=== PATIENT | male | born 1980 ===

== ENCOUNTER 2018-09-08 12:49 | Emergency (ER) | payer OTHER, BC ==
[2018-09-08 13:31] VITALS: O2SAT 99
[2018-09-08] MEDS ORDERED: Tdap Vaccine 0.5 ml Vial (10-64 yrs) IM ONE ×2 (14:48→14:55)
[2018-09-08] MEDS ORDERED: Lidocaine 1% Inj (20ml) INFIL ONE (14:49)
[2018-09-08] MEDS ORDERED: Lidocaine Hydrochloride 10 ML INJ ONE (14:54)
--- NOTE | 2018-09-08 15:14 | C.PDOC ---
History Of Present Illness 37 y/o male presents to the ED for evaluation of a laceration to the left 3rd digit, sustained just prior to arrival. Patient states he accidentally cut himself on a saw at work. He denies any change in sensation. Tetanus is not up to date. Time Seen by Provider: 09/08/18 14:15 Chief Complaint (Nursing): Abnormal Skin Integrity History Per: Patient History/Exam Limitations: no limitations Onset/Duration Of Symptoms: Mins Current Symptoms Are (Timing): Still Present Location Of Injury: Left: Hand Past Medical History Reviewed: Historical Data, Nursing Documentation, Vital Signs Vital Signs: Last Vital Signs Temp 97.5 F L 09/08/18 13:30 Pulse 70 09/08/18 13:30 Resp 20 09/08/18 13:30 BP 138/89 09/08/18 13:30 Pulse Ox 99 09/08/18 13:30 - Medical History PMH: No Chronic Diseases Surgical History: No Surg Hx Family History: States: No Known Family Hx - Social History Hx Alcohol Use: Yes Hx Substance Use: No - Immunization History Hx Tetanus Toxoid Vaccination: No Hx Influenza Vaccination: No Hx Pneumococcal Vaccination: No Review Of Systems Musculoskeletal: Positive for: Hand Pain Skin: Positive for: Lesions (laceration to left 3rd digit) Neurological: Negative for: Weakness, Numbness, Incoordination Physical Exam - Physical Exam Appears: Non-toxic, No Acute Distress Skin: No Rash Head: Normacephalic Eye(s): bilateral: PERRL, EOMI Chest: Symmetrical Respiratory: No Accessory Muscle Use, Other (no respiratory distress) Extremity: Normal ROM, Capillary Refill (less than 2 sec), No Deformity, No Swelling, Other (1 cm, irregular laceration at the medial aspect of the distal left 3rd digit, extending through the nail bed) Pulses: Left Radial: Normal, Right Radial: Normal Neurological/Psych: Oriented x3, Normal Motor, Normal Sensation, Other (No focal deficits) ED Course And Treatment O2 Sat by Pulse Oximetry: 99 (RA) Pulse Ox Interpretation: Normal Laceration - Laceration Repair L 3rd digit Wound Length (In cm): 1 Description Of Wound: Irregular (and involving nail bed), Stellate, Contused Tissue Wound Cleansed With: Sterile Saline Anesthesia: Lidocaine 1% Wound Examination: Irrigated With Saline Wound Closure: Suture (2 placed to nail, 2 to skin) Suture Technique And Material Used: Interrupted, Nylon (4:0) Wound Complexity: Simple Medical Decision Making Medical Decision Making: Initial Plan: X-ray taken of left hand to r/o fracture. Tetanus booster given in the ED. Toradol 30 mg IM given for pain. Lido 1% ordered for lac repair. Patient tolerated procedure well. Counseled regarding wound care and follow up instructions. counseled nail will fall off. bacitracin and bandage applied. finger splint applied for protection. f/u 1-2 days with hand surgeon. Disposition Counseled Patient/Family Regarding: Studies Performed, Diagnosis, Need For Followup, Rx Given - Disposition Referrals: Jaimee Kerr MD [Staff Provider] - Disposition: HOME/ ROUTINE Disposition Time: 17:15 Condition: GOOD Additional Instructions: Mantenga el dedo limpio y seco; Llame al cirujano de la mano y amaya la negrita ms pronto para deluna seguimiento; avise a la oficina que se le camron en la perez de emergencias Thea antibiticos e ibuprofeno para el dolor. [place] Tyoenol # 3 para el dolor jovana. Mantenga la mano elevada cuando sea posible. Cambie el apsito diariamente y aplique neosporin shyam vez al da. Reutrn a ER para detectar cualquier signo de infeccin, marvin rednss. hinchazn. secrecin purulenta. Keep finger clean and dry; Call Hand surgeon and make soonest appointment for follow up; let office know you were seen in ER. Take antibiotic and ibuprofen for pain. Take Tyoenol # 3 for severe pain. Keep hand elevated when possible. Change dressing daily and apply neosporin once a day. Reutrn to ER for any signs of infection., such as redness. swelling. purulent discharge. 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 - Scribe Statement The provider has reviewed the documentation as recorded by the Scribe Liane Mackey All medical record entries made by the Scribe were at my direction and personally dictated by me. I have reviewed the chart and agree that the record accurately reflects my personal performance of the history, physical exam, medical decision making, and the department course for this patient. I have also personally directed, reviewed, and agree with the discharge instructions and disposition.
--- NOTE | 2018-09-08 16:25 | RAD ---
Date of service: 09/08/2018 PROCEDURE: Left middle finger radiographs. HISTORY: lac to tip, eval for fx COMPARISON: None. TECHNIQUE: AP radiograph of the left hand, as well as spot oblique and lateral images of left middle finger were obtained. FINDINGS: LEFT MIDDLE FINGER: Left middle finger normal, without fracture of focal lesion. Remainder of the left hand (as seen on the AP view) is grossly unremarkable. JOINTS: Normal. SOFT TISSUES: Soft tissue injury. This includes the on-call bed. No visualized radiopaque foreign body. OTHER FINDINGS: Soft tissue calcifications an unrelated incidental finding. Resorption of the distal phalanx left 2nd digit. IMPRESSION: Soft tissue swelling without acute articular or osseous abnormality.
[2018-09-08] MEDS ORDERED: Bacitracin 500 Units/gm Oint Foilpak UD ONE (17:12)
[2018-09-08] MEDS ORDERED: Bacitracin 500 Units/gm Oint Foilpak UD TOP ONE (17:19)
[2018-09-08 17:34] VITALS: BP 131/84; PULSE 71; RESP 18; TEMP 98.1
== END 2018-09-08 17:33 | disposition home or self-care (01) ==
LOC: C.ER 12:49
DX: S61.313A Laceration without foreign body of left middle finger with damage to nail, initial encounter (principal); W45.8XXA Other foreign body or object entering through skin, initial encounter; Y92.89 Other specified places as the place of occurrence of the external cause; Y99.0 Civilian activity done for income or pay
CPT/HCPCS: 12001; 73140; 90471; 90715; 96372; 99283; J1885

== ENCOUNTER 2018-09-10 15:33 | Emergency (ER) | payer OTHER, BC ==
[2018-09-10 15:39] VITALS: BMI 26.6
[2018-09-10 15:40] VITALS: BP 147/92; PULSE 62; RESP 18; TEMP 98.7; O2SAT 99
[2018-09-10] MEDS ORDERED: Bacitracin 500 Units/gm Oint Foilpak UD TOP ONE (16:20)
--- NOTE | 2018-09-10 16:21 | C.PDOC ---
History Of Present Illness 37 year old male presents to the ED for a wound check. Patient was evaluated in this ED two days ago after he sustained a finger avulsion and received sutures. Patient has no complains and denies fever, chills, drainge or pain to the area. Time Seen by Provider: 09/10/18 15:48 Chief Complaint (Nursing): Wound Check History Per: Patient History/Exam Limitations: no limitations Onset/Duration Of Symptoms: Days Ago (2) Current Symptoms Are (Timing): Still Present Location Of Injury: Left: Hand (3rd finger ) Quality Of Symptoms: denies: Painful, Draining Additional History Per: Patient Past Medical History Reviewed: Historical Data, Nursing Documentation, Vital Signs Vital Signs: Last Vital Signs Temp 98.7 F 09/10/18 15:39 Pulse 62 09/10/18 15:39 Resp 18 09/10/18 15:39 BP 147/92 H 09/10/18 15:39 Pulse Ox 99 09/10/18 15:39 - Medical History PMH: No Chronic Diseases Surgical History: No Surg Hx Family History: States: Unknown Family Hx - Social History Hx Alcohol Use: Yes Hx Substance Use: No - Immunization History Hx Tetanus Toxoid Vaccination: No Hx Influenza Vaccination: No Hx Pneumococcal Vaccination: No Review Of Systems Constitutional: Negative for: Fever, Chills Skin: Positive for: Other (wound check ) Physical Exam - Physical Exam Appears: Non-toxic, No Acute Distress Skin: Normal Color, Warm, Dry, Other (sutured wound to left 3rd finger. no erythema, tenderness or cellulitis ) Extremity: Normal ROM, Capillary Refill (less than 2 seconds ) Neurological/Psych: Normal Speech, Normal Cognition ED Course And Treatment O2 Sat by Pulse Oximetry: 99 (on RA) Pulse Ox Interpretation: Normal Medical Decision Making Medical Decision Making: Wound was cleansed with sterile saline and sterile dressing applied. Disposition - Disposition Referrals: Jaimee Kerr MD [Staff Provider] - Disposition: HOME/ ROUTINE Disposition Time: 16:17 Condition: STABLE Additional Instructions: Continue taking the antibiotics as prescribed. Sutures to be removed within 7-10 days. Instructions: Wound Care (DC) Forms: [employer] (Pakistani), Work Excuse Print Language: LAO - Clinical Impression Clinical Impression: Visit for wound check - PA / ALINING INSPECTOR / Resident Statement MD/DO has reviewed & agrees with the documentation as recorded. - Scribe Statement The provider has reviewed the documentation as recorded by the Scribe (Helen Anderson) All medical record entries made by the Scribe were at my direction and personally dictated by me. I have reviewed the chart and agree that the record accurately reflects my personal performance of the history, physical exam, medical decision making, and the department course for this patient. I have also personally directed, reviewed, and agree with the discharge instructions and disposition.
[2018-09-10] MEDS ORDERED: Bacitracin 500 Units/gm Oint Foilpak UD ONE (16:39)
== END 2018-09-10 16:52 | disposition home or self-care (01) ==
LOC: C.ER 15:33
DX: Z51.89 Encounter for other specified aftercare (principal)

== ENCOUNTER 2019-03-05 13:13 | Observation (INO) | payer BC, OTHER ==
[2019-03-05 13:13] VITALS: BMI 26.6
--- NOTE | 2019-03-05 14:02 | C.PDOC ---
History Of Present Illness 38 y.o. male presents for evaluation of LT hand redness and swelling associated with subjective fever x3 days. Pt reports pain to the area. He states prior similar skin infections yearly to other parts of the body for 5 years. Pt notes previous treatment with unknown antibiotic. Denies DM, drainage, and any other associated symptoms. L HAND REDNESS, SWELL X 3 DAYS. SUBJ FEVER. NO TRAUMA. +SWELLING, PAIN TO AREA. PS GETS SIM SKIN INFECTIONS YEARLY (OTHER PARTS OF BODY) X 5 YRS. PS PREV TREATED W UNK ABX. NO DM EXAM NONTOXIC SKIN +CELLULITIS DORSAL L HAND W EXTENSION TO DISTAL FOREARM, PROXIMAL FINGERS. NO LESIONS, WEEPING EXT L HAND +DIFFUSE TENSE NONPITTING EDEMA Time Seen by Provider: 03/05/19 13:50 Chief Complaint (Nursing): Abnormal Skin Integrity History Per: Patient History/Exam Limitations: no limitations Onset/Duration Of Symptoms: Days (x3) Current Symptoms Are (Timing): Still Present Location Of Injury: Left: Hand Quality Of Symptoms: Swollen, Other (redness. ) Recent travel outside of the [place]: No Past Medical History Reviewed: Historical Data, Nursing Documentation, Vital Signs Vital Signs: Last Vital Signs Temp 100 F H 03/05/19 13:23 Pulse 90 03/05/19 13:23 Resp 16 03/05/19 13:23 BP 146/102 H 03/05/19 13:23 Pulse Ox 96 03/05/19 13:23 Primary Care Provider: FAMILY PROVIDER,NO Family History: States: Unknown Family Hx - Social History Hx Alcohol Use: Yes Hx Substance Use: No - Immunization History Hx Tetanus Toxoid Vaccination: No Hx Influenza Vaccination: No Hx Pneumococcal Vaccination: No Review Of Systems Except As Marked, All Systems Reviewed And Found Negative. Constitutional: Positive for: Fever (subjective. ) Skin: Positive for: Other (LT Hand: (+) swelling. (+) redness. (+) pain. (-) drainage. ) Physical Exam - Physical Exam Appears: Non-toxic, No Acute Distress Skin: Warm, Dry, Other (+CELLULITIS DORSAL L HAND W EXTENSION TO DISTAL FOREARM, PROXIMAL FINGERS. NO LESIONS, WEEPING.) Head: Atraumatic, Normacephalic Eye(s): bilateral: Normal Inspection Oral Mucosa: Moist Neck: Normal ROM, Supple Cardiovascular: Rhythm Regular, No Murmur Respiratory: Normal Breath Sounds, No Rales, No Rhonchi, No Wheezing, No Other (NARD) Gastrointestinal/Abdominal: Normal Exam, Soft, No Tenderness Extremity: Tenderness (TO THE LT HAND, DIFFUSE.), Other (NONPITTING EDEMA. ) Neurological/Psych: Oriented x3, Normal Speech, Normal Cognition ED Course And Treatment - Laboratory Results Result Diagrams: 03/06/19 08:21 03/06/19 08:21 O2 Sat by Pulse Oximetry: 96 (RA) Pulse Ox Interpretation: Normal - Other Rad L HAND X-Ray: Interpreted by Me (+FB OVER L 5TH METACARPAL HEAD; NO FX, FA) Progress - Re-Evaluation Re-evaluation Note: 03/05/19 14:02 D/W DR RAÚL PAK DEPUTY [place] WILL ADMIT - Data Reviewed Data Reviewed: Lab, Diagnostic imaging Medical Decision Making Medical Decision Making: Initial plan: -Blood sent. -Toradol -Vancomycin -Ancef -Blood culture -LT Hand Xray Disposition Counseled Patient/Family Regarding: Studies Performed, Diagnosis - Disposition Disposition: HOSPITALIZED Disposition Time: 14:00 Condition: STABLE - Clinical Impression Clinical Impression: Cellulitis - Scribe Statement The provider has reviewed the documentation as recorded by the Scribe (Nisha Fuentes) Provider Attestation: All medical record entries made by the Scribe were at my direction and personally dictated by me. I have reviewed the chart and agree that the record accurately reflects my personal performance of the history, physical exam, medical decision making, and the department course for this patient. I have also personally directed, reviewed, and agree with the discharge instructions and disposition.
[2019-03-05] MEDS ORDERED: ceFAZolin IV 1 gm in Dextrose 1 GM/50 ML BAG IVPB STA (14:12)
[2019-03-05] MEDS ORDERED: ceFAZolin IV 1 gm in Dextrose 1 GM/50 ML BAG IVPB SCH (14:15)
[2019-03-05] MEDS ORDERED: Vancomycin 1 GM 1 GM/250 ML BAG IVPB ONE (14:30)
[2019-03-05] MEDS ORDERED: ceFAZolin 1 gm in NS 1 GM/100 ML BAG IVPB ONE (14:31)
[2019-03-05 14:54] LABS: BASO # 0.1 K/uL (0.0-0.2); BASO % 0.5 % (0.0-2.0); EOS # 0.1 K/uL (0.0-0.7); EOS % 0.3 % (0.0-4.0); HEMOGLOBIN 14.5 g/dL (12.0-18.0); LYMPH % 11.5 % (20.0-40.0); MEAN CELL VOLUME 89.4 fL (80.0-94.0); MEAN CORPUSCULAR HEMOGLOBIN 31.1 pg (27.0-31.0); MEAN CORPUSCULAR HGB CONC 34.8 g/dL (33.0-37.0); MEAN PLATELET VOLUME 9.3 fL (7.2-11.7); MONO # 1.2 K/uL (0.0-0.8); MONO % 6.5 % (0.0-10.0); NEUT # 14.4 K/uL (1.8-7.0); NEUT % 81.2 % (50.0-75.0); RBC 4.67 Mil/uL (4.40-5.90); RED CELL DISTRIBUTION WIDTH 13.6 % (11.5-14.5); WHITE BLOOD COUNT 17.7 K/uL (4.8-10.8)
[2019-03-05 15:05] LABS: BLOOD UREA NITROGEN 10 mg/dL (9-20); CALCIUM 10.1 mg/dl (8.6-10.4); GFR NON-AFRICAN AMERICAN > 60
--- NOTE | 2019-03-05 16:23 | CP.PCM.HP ---
<Tutu Chacko - Last Filed: 03/05/19 18:29> History of Present Illness - History of Present Illness History of Present Illness: 38 year old male with a past medical history of cellulitis presents to the emergency department with left hand swelling for the past day. Patient states it started to swell slightly three days ago, however yesterday he tried to pop what he thought was a pimple. Patient states when he woke up this morning the hand had grew even larger and began to hurt. Patient describes the pain as throbbing in nature. He denies any recent accidents or trauma to the area. 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 He denies taking anything for the pain. Of note, he had two episodes of cellulits in the past. Approximately five years ago he had a similar infection on his anterior chest wall and right leg. He also reports his brother and father have had similar skin infections. PMD: Denies Medical history: cellulitis Allergies: Denies Surgical history: Denies Medications: Denies Family history: non contributory besides what is stated in HPI Present on Admission - Present on Admission Any Indicators Present on Admission: No Review of Systems - Constitutional Constitutional: Fever. absent: Excessive Sweating, Night Sweats, Snoring - EENT Eyes: absent: Change in Vision, Decreased Night Vision, Pain, Tunnel Vision, Other Visual Disturbances Ears: absent: Tinnitus Nose/Mouth/Throat: absent: Nasal Discharge, Bleeding Gums, Change in Voice, Other - Cardiovascular Cardiovascular: absent: Chest Pain, Edema, Orthopnea, Palpitations, Paroxysmal N octurnal Dyspnea, Syncope - Respiratory Respiratory: absent: Cough, Dyspnea, Hemoptysis, Wheezing, Excessive Mucous Production - Gastrointestinal Gastrointestinal: absent: Bloating, Change in Bowel Habits, Diarrhea, Dyspepsia, Dysphagia, Melena - Genitourinary Genitourinary: absent: Change in Urinary Stream, Dysuria, Flank Pain, Urinary Hesitance - Musculoskeletal Musculoskeletal: absent: Back Pain, Deformity, Myalgias, Neck Pain - Integumentary Integumentary: absent: Change in Nails, Lesions, New Lesions, Sores, Striae - Neurological Neurological: absent: Abnormal Speech, Dizziness, Numbness, Vertigo, Weakness - Psychiatric Psychiatric: absent: Confusion, Irritability, Panic Attacks, Paranoia, Visual Hallucinations - Hematologic/Lymphatic Hematologic: absent: Easy Bleeding, Easy Bruising, Lymphadenopathy Past Patient History - Past Social History Smoking Status: Never Smoked - PSYCHIATRIC Hx Substance Use: No - SURGICAL HISTORY Hx Surgeries: No - ANESTHESIA Hx Anesthesia: No Hx Anesthesia Reactions: No Meds Allergies/Adverse Reactions: Allergies Allergy/AdvReac Type Severity Reaction Status Date / Time No Known Allergies Allergy Verified 03/05/19 13:24 Physical Exam - Head Exam Head Exam: ATRAUMATIC, NORMAL INSPECTION - Eye Exam Eye Exam: EOMI, Normal appearance. absent: Nystagmus, Periorbital swelling Pupil Exam: NORMAL ACCOMODATION, PERRL - ENT Exam ENT Exam: Mucous Membranes Moist, Normal Exam - Neck Exam Neck exam: Positive for: Normal Inspection. Negative for: Tenderness - Respiratory Exam Respiratory Exam: Clear to Auscultation Bilateral, NORMAL BREATHING PATTERN - Cardiovascular Exam Cardiovascular Exam: REGULAR RHYTHM, +S1, +S2. absent: Tachycardia, Clicks, Diastolic murmur, JVD, RRR - GI/Abdominal Exam GI & Abdominal Exam: Normal Bowel Sounds, Soft. absent: Hyperactive Bowel Sounds, Rebound, Rigid - Neurological Exam Neurological exam: Alert, CN II-XII Intact, Normal Gait, Oriented x3 - Psychiatric Exam Psychiatric exam: Normal Affect, Normal Mood - Skin Skin Exam: Dry Additional comments: Right hand: Swollen and erythematous. Wound on the lateral side of the right hand. Pulses appreciated. Results - Vital Signs Recent Vital Signs: Last Vital Signs Temp 99.5 F 03/05/19 15:49 Pulse 86 03/05/19 15:49 Resp 16 03/05/19 15:49 BP 140/95 H 03/05/19 15:49 Pulse Ox 98 03/05/19 15:49 - Labs Result Diagrams: 03/05/19 14:49 03/05/19 14:49 Labs: Laboratory Results - last 24 hr 03/05/19 03/05/19 14:49 14:49 WBC 17.7 H RBC 4.67 Hgb 14.5 Hct 41.8 MCV 89.4 MCH 31.1 H MCHC 34.8 RDW 13.6 Plt Count 290 MPV 9.3 Neut % (Auto) 81.2 H Lymph % (Auto) 11.5 L [place] % (Auto) 6.5 Eos % (Auto) 0.3 Baso % (Auto) 0.5 Neut # (Auto) 14.4 H Lymph # (Auto) 2.0 [place] # (Auto) 1.2 H Eos # (Auto) 0.1 Baso # (Auto) 0.1 Sodium 137 Potassium 4.0 Chloride 99 Carbon Dioxide 30 Anion Gap 12 BUN 10 Creatinine 0.8 Est GFR ( Amer) > 60 Est GFR (Non-Af Amer) > 60 Random Glucose 89 Calcium 10.1 Assessment & Plan - Assessment and Plan (Free Text) Assessment: 38 year old male with a past medical history of cellulitis presents to the emergency department with left hand swelling for the past day. Plan: 1. Right hand cellulitis Right hand xray: taken. Blood cx ordered .F/u with results. Hand Surgery Dr. Espinoza consulted--> Help appreciated Medications: Vancomycin 1gm q12 CHRISTINA Acetaminophen 650mg PO Q6 PRN Toradol 30mg IVP Q6 PRN 2.Elevated blood pressure reading 142/102 on Admission Likely 2/2 to pain Will monitor. PPX Heparin LR @ 100mls/hr Dispo: Awaiting blood cultures and rec's from Hand surgeon. Plan discussed with Attending Dr. Giron. Tutu Chacko, PGY-2 <Swapnil Giron - Last Filed: 03/06/19 13:01> Results - Vital Signs Recent Vital Signs: Last Vital Signs Temp 99.0 F 03/05/19 16:34 Pulse 64 03/05/19 16:34 Resp 20 03/05/19 16:34 BP 132/79 03/05/19 16:34 Pulse Ox 96 03/05/19 16:34 - Labs Result Diagrams: 03/06/19 08:21 03/06/19 08:21 Labs: Laboratory Results - last 24 hr 03/05/19 03/05/19 14:49 14:49 WBC 17.7 H RBC 4.67 Hgb 14.5 Hct 41.8 MCV 89.4 MCH 31.1 H MCHC 34.8 RDW 13.6 Plt Count 290 MPV 9.3 Neut % (Auto) 81.2 H Lymph % (Auto) 11.5 L [place] % (Auto) 6.5 Eos % (Auto) 0.3 Baso % (Auto) 0.5 Neut # (Auto) 14.4 H Lymph # (Auto) 2.0 [place] # (Auto) 1.2 H Eos # (Auto) 0.1 Baso # (Auto) 0.1 Sodium 137 Potassium 4.0 Chloride 99 Carbon Dioxide 30 Anion Gap 12 BUN 10 Creatinine 0.8 Est GFR ( Amer) > 60 Est GFR (Non-Af Amer) > 60 Random Glucose 89 Calcium 10.1 Attending/Attestation - Attestation I have personally seen and examined this patient.: Yes I have fully participated in the care of the patient.: Yes I have reviewed all pertinent clinical information: Yes Notes (Text): seen and examined with the resident denies insect bite,denies drug use h/o similar skin infection left hand and forarm swelling,redness and tenderness Cellulitis of hand and forearm continue ceftriaxone and vanco hydrate pain meds follow labs
[2019-03-05] MEDS ORDERED: Vancomycin 1 gm/NS 200 ml 1 GM/200 ML BAG IVPB SCH (16:30)
[2019-03-05 16:36] VITALS: RESP 20
[2019-03-05] MEDS: Lactated Ringer's 1,000 ML IV SCH (20:55)
--- NOTE | 2019-03-05 21:23 | RAD ---
PROCEDURE: Left Hand Radiographs. HISTORY: CELLULITIS COMPARISON: 09/08/2018 TECHNIQUE: 3 views obtained. FINDINGS: BONES: Normal. No fracture. JOINTS: Normal. No osteoarthritic changes. SOFT TISSUES: Soft tissue swelling noted. OTHER FINDINGS: None. IMPRESSION: No evidence of acute fracture or or dislocation. No radiographic evidence of osteomyelitis.
[2019-03-05 22:21] LABS: BARBITURATES, UR NEGATIVE (NEGATIVE); BENZODIAZEPINES, UR NEGATIVE (NEGATIVE); OPIATES, UR NEGATIVE (NEGATIVE); PHENCYCLIDINE, UR NEGATIVE (NEGATIVE)
[2019-03-05 23:50] LABS: SQUAMOUS EPITHIAL < 1 /hpf (0-5); URINE BILIRUBIN NEGATIVE (NEGATIVE); URINE BLOOD 1+ (NEGATIVE); URINE CLARITY Clear (Clear); URINE COLOR Yellow (YELLOW); URINE GLUCOSE (UA) NORMAL (Normal); URINE LEUKOCYTE ESTERASE NEG Leu/uL (Negative); URINE PROTEIN NEGATIVE (NEGATIVE)
[2019-03-06] MEDS: Vancomycin 1 gm/NS 200 ml 1 GM/200 ML BAG IVPB SCH ×2 (04:02→17:00)
[2019-03-06] MEDS: Lactated Ringer's 1,000 ML IV SCH ×3 (05:20→17:09)
[2019-03-06 08:37] LABS: BASO # 0.1 K/uL (0.0-0.2); BASO % 0.5 % (0.0-2.0); EOS # 0.1 K/uL (0.0-0.7); EOS % 1.1 % (0.0-4.0); HEMOGLOBIN 13.7 g/dL (12.0-18.0); LYMPH # 2.3 K/uL (1.0-4.3); LYMPH % 16.6 % (20.0-40.0); MEAN CELL VOLUME 89.9 fL (80.0-94.0); MEAN CORPUSCULAR HEMOGLOBIN 29.9 pg (27.0-31.0); MEAN CORPUSCULAR HGB CONC 33.3 g/dL (33.0-37.0); MEAN PLATELET VOLUME 9.5 fL (7.2-11.7); MONO # 0.8 K/uL (0.0-0.8); MONO % 5.7 % (0.0-10.0); NEUT # 10.3 K/uL (1.8-7.0); NEUT % 76.1 % (50.0-75.0); RBC 4.58 Mil/uL (4.40-5.90); RED CELL DISTRIBUTION WIDTH 13.9 % (11.5-14.5); WHITE BLOOD COUNT 13.6 K/uL (4.8-10.8)
[2019-03-06 08:54] LABS: ALB/GLOB RATIO 1.2 (1.0-2.1); ALBUMIN 3.9 g/dL (3.5-5.0); ALT/SGPT 17 U/L (21-72); AST/SGOT 20 U/L (17-59); BLOOD UREA NITROGEN 14 mg/dL (9-20); CALCIUM 9.7 mg/dl (8.6-10.4); GFR NON-AFRICAN AMERICAN > 60; HDL CHOLESTEROL 45 mg/dL (30-70)
[2019-03-06 09:02] LABS: LDL CHOLESTEROL 103 mg/dL (0-129)
--- NOTE | 2019-03-06 12:55 | CP.PCM.PN ---
<Tutu Chacko - Last Filed: 03/06/19 15:14> Subjective - Date & Time of Evaluation Date of Evaluation: 03/06/19 Time of Evaluation: 12:55 - Subjective Subjective: PGY2 Progress Note for Dr. Giron's Service Patient seen and examined at bedside. Per nursing no acute events occurred overnight. Patient denies any headaches, fevers, chills, abdominal pain, chest pain, or shortness of breath. Objective - Vital Signs/Intake and Output Vital Signs (last 24 hours): Temp Pulse Resp BP Pulse Ox 98.9 F 79 20 125/78 96 03/06/19 09:06 03/06/19 09:06 03/06/19 09:06 03/06/19 09:06 03/06/19 12:20 Intake and Output: 03/06/19 03/06/19 06:59 18:59 Intake Total 1050 Balance 1050 - Medications Medications: Current Medications Acetaminophen (Tylenol 325mg Tab) 650 mg PO Q6 PRN PRN Reason: Pain, moderate (4-7) Heparin Sodium (Porcine) (Heparin) 5,000 units SC Q8 CHRISTINA Last Admin: 03/06/19 05:19 Dose: 5,000 units Lactated Ringer's (Lactated Ringer's) 1,000 mls @ 100 mls/hr IV .Q10H CHRISTINA Last Admin: 03/06/19 12:43 Dose: Not Given Ceftriaxone Sodium 1 gm/ (Sodium Chloride) 100 mls @ 100 mls/hr IVPB DAILY CHRISTINA; Protocol Last Admin: 03/06/19 09:48 Dose: 100 mls/hr Vancomycin/Sodium Chloride (Vancomycin 1 Gm/Ns 200 Ml) 1 gm in 200 mls @ 133.33 3 mls/hr IVPB Q12H CHRISTINA; Protocol Stop: 03/11/19 04:31 Last Admin: 03/06/19 04:02 Dose: 133.333 mls/hr Ketorolac Tromethamine (Toradol) 30 mg IVP Q6 PRN PRN Reason: Pain, severe (8-10) - Labs Labs: 03/06/19 08:21 03/06/19 08:21 - Head Exam Head Exam: ATRAUMATIC, NORMAL INSPECTION - Eye Exam Eye Exam: EOMI, Normal appearance. absent: Periorbital swelling Pupil Exam: NORMAL ACCOMODATION, PERRL - ENT Exam ENT Exam: Mucous Membranes Moist, Normal Exam. absent: Normal External Ear Exam - Neck Exam Neck Exam: Normal Inspection - Respiratory Exam Respiratory Exam: Clear to Ausculation Bilateral, NORMAL BREATHING PATTERN. absent: Decreased Breath Sounds, Stridor - Cardiovascular Exam Cardiovascular Exam: REGULAR RHYTHM, +S1, +S2 - GI/Abdominal Exam GI & Abdominal Exam: Soft, Normal Bowel Sounds. absent: Tenderness, Mass - Extremities Exam Extremities Exam: Full ROM, Normal Inspection Additional comments: Left hand swollen, erythematous on inspection. No fluctulant massses appreciated. Warm to tough on examination. Smaller in size during today's visit. Pulses in both wrist appreciated bilaterally. - Neurological Exam Neurological Exam: Alert, Awake, CN II-XII Intact, Normal Gait, Oriented x3 - Psychiatric Exam Psychiatric exam: Normal Affect, Normal Mood - Skin Skin Exam: Dry, Intact, Normal Color Assessment and Plan - Assessment and Plan (Free Text) Plan: 38 year old male with a past medical history of cellulitis presents to the emergency department with left hand swelling for the past day. Plan: 1. Right hand cellulitis WBC:17.7 on admission. Repeat WBC 13.6 Right hand xray: Negative for acute fracture or dislocation. Negative for osteomyelitis. Blood cx received. Will f/u with final results Hand Surgery Dr. Espinoza consulted--> Help appreciated Medications: Vancomycin 1gm q12 CHRISTINA Acetaminophen 650mg PO Q6 PRN Toradol 30mg IVP Q6 PRN Rocephin 1gm IVP DAILY 2.Elevated blood pressure reading 142/102 on Admission Likely 2/2 to pain. Normotensive Will monitor. PPX Heparin LR @ 100mls/hr Dispo: Awaiting blood cultures and rec's from Hand surgeon. WBC count improving. Plan discussed with Attending Dr. Giron. Tutu Chacko, PGY-2 <Swapnil Giron - Last Filed: 03/06/19 16:25> Objective - Vital Signs/Intake and Output Vital Signs (last 24 hours): Temp Pulse Resp BP Pulse Ox 98.5 F 68 20 127/76 96 03/06/19 16:14 03/06/19 16:14 03/06/19 16:14 03/06/19 16:14 03/06/19 16:14 Intake and Output: 03/06/19 03/06/19 06:59 18:59 Intake Total 1050 800 Balance 1050 800 - Medications Medications: Current Medications Acetaminophen (Tylenol 325mg Tab) 650 mg PO Q6 PRN PRN Reason: Pain, moderate (4-7) Heparin Sodium (Porcine) (Heparin) 5,000 units SC Q8 CHRISTINA Last Admin: 03/06/19 14:57 Dose: 5,000 units Lactated Ringer's (Lactated Ringer's) 1,000 mls @ 100 mls/hr IV .Q10H CHRISTINA Last Admin: 03/06/19 12:43 Dose: Not Given Ceftriaxone Sodium 1 gm/ (Sodium Chloride) 100 mls @ 100 mls/hr IVPB DAILY CHRISTINA; Protocol Last Admin: 03/06/19 09:48 Dose: 100 mls/hr Vancomycin/Sodium Chloride (Vancomycin 1 Gm/Ns 200 Ml) 1 gm in 200 mls @ 133.333 mls/hr IVPB Q12H CHRISTINA; Protocol Stop: 03/11/19 04:31 Last Admin: 03/06/19 04:02 Dose: 133.333 mls/hr Ketorolac Tromethamine (Toradol) 30 mg IVP Q6 PRN PRN Reason: Pain, severe (8-10) - Labs Labs: 03/06/19 08:21 03/06/19 08:21 Attending/Attestation - Attestation I have personally seen and examined this patient.: Yes I have fully participated in the care of the patient.: Yes I have reviewed all pertinent clinical information, including history, physical exam and plan: Yes Notes (Text): Seen and examined,left arm and hand pain and swelling shows little improvement. patient need more days of IV antibiotics follow cultures wbc is coming down we will follow
[2019-03-07] MEDS: Vancomycin 1 gm/NS 200 ml 1 GM/200 ML BAG IVPB SCH ×2 (04:19→17:17)
[2019-03-07] MEDS: Lactated Ringer's 1,000 ML IV SCH ×2 (04:20→09:39)
[2019-03-07 07:50] LABS: BASO # 0.1 K/uL (0.0-0.2); EOS # 0.2 K/uL (0.0-0.7); EOS % 2.3 % (0.0-4.0); HEMOGLOBIN 13.3 g/dL (12.0-18.0); LYMPH # 2.2 K/uL (1.0-4.3); LYMPH % 22.3 % (20.0-40.0); MEAN CELL VOLUME 89.8 fL (80.0-94.0); MEAN CORPUSCULAR HEMOGLOBIN 30.3 pg (27.0-31.0); MEAN CORPUSCULAR HGB CONC 33.8 g/dL (33.0-37.0); MEAN PLATELET VOLUME 9.5 fL (7.2-11.7); MONO # 0.7 K/uL (0.0-0.8); MONO % 6.9 % (0.0-10.0); NEUT # 6.6 K/uL (1.8-7.0); NEUT % 67.5 % (50.0-75.0); RBC 4.4 Mil/uL (4.40-5.90); RED CELL DISTRIBUTION WIDTH 13.3 % (11.5-14.5); WHITE BLOOD COUNT 9.8 K/uL (4.8-10.8)
[2019-03-07 08:07] LABS: ALB/GLOB RATIO 1.1 (1.0-2.1); ALBUMIN 3.7 g/dL (3.5-5.0); ALT/SGPT 19 U/L (21-72); AST/SGOT 19 U/L (17-59); BLOOD UREA NITROGEN 15 mg/dL (9-20); CALCIUM 9.6 mg/dl (8.6-10.4); GFR NON-AFRICAN AMERICAN > 60
[2019-03-07 15:38] VITALS: BP 134/86; PULSE 67; TEMP 98.2; O2SAT 96
--- NOTE | 2019-03-07 16:55 | CP.PCM.DIS ---
Provider - Provider Date of Admission: 03/05/19 14:05 Attending physician: Swapnil Giron MD Primary care physician: none Consults: 03/05/19 16:23 Physician Consult Routine Comment: Consulting Provider: Jovanny Espinoza Consulting Physician: Jovanny Espinoza Reason for Consult: cellulitis of hand Time Spent in preparation of Discharge (in minutes): 35 Diagnosis - Discharge Diagnosis (1) Cellulitis of right hand Status: Acute (2) Elevated blood pressure reading Status: Resolved Hospital Course - Lab Results Lab Results: Micro Results 03/05/19 14:30 Blood Blood Culture - Preliminary NO GROWTH AFTER 48 HOURS 03/05/19 14:15 Blood Blood Culture - Preliminary NO GROWTH AFTER 48 HOURS Most Recent Lab Values WBC 9.8 K/uL (4.8-10.8) 03/07/19 07:40 RBC 4.40 Mil/uL (4.40-5.90) 03/07/19 07:40 Hgb 13.3 g/dL (12.0-18.0) 03/07/19 07:40 Hct 39.5 % (35.0-51.0) 03/07/19 07:40 MCV 89.8 fL (80.0-94.0) 03/07/19 07:40 MCH 30.3 pg (27.0-31.0) 03/07/19 07:40 MCHC 33.8 g/dL (33.0-37.0) 03/07/19 07:40 RDW 13.3 % (11.5-14.5) 03/07/19 07:40 Plt Count 292 K/uL (130-400) 03/07/19 07:40 MPV 9.5 fL (7.2-11.7) 03/07/19 07:40 Neut % (Auto) 67.5 % (50.0-75.0) 03/07/19 07:40 Lymph % (Auto) 22.3 % (20.0-40.0) 03/07/19 07:40 [place] % (Auto) 6.9 % (0.0-10.0) 03/07/19 07:40 Eos % (Auto) 2.3 % (0.0-4.0) 03/07/19 07:40 Baso % (Auto) 1.0 % (0.0-2.0) 03/07/19 07:40 Neut # (Auto) 6.6 K/uL (1.8-7.0) 03/07/19 07:40 Lymph # (Auto) 2.2 K/uL (1.0-4.3) 03/07/19 07:40 [place] # (Auto) 0.7 K/uL (0.0-0.8) 03/07/19 07:40 Eos # (Auto) 0.2 K/uL (0.0-0.7) 03/07/19 07:40 Baso # (Auto) 0.1 K/uL (0.0-0.2) 03/07/19 07:40 Sodium 138 mmol/L (132-148) 03/07/19 07:40 Potassium 4.2 mmol/L (3.6-5.2) 03/07/19 07:40 Chloride 102 mmol/L (98-107) 03/07/19 07:40 Carbon Dioxide 27 mmol/L (22-30) 03/07/19 07:40 Anion Gap 13 (10-20) 03/07/19 07:40 BUN 15 mg/dL (9-20) 03/07/19 07:40 Creatinine 0.7 mg/dL (0.8-1.5) L 03/07/19 07:40 Est GFR ( Amer) > 60 03/07/19 07:40 Est GFR (Non-Af Amer) > 60 03/07/19 07:40 Random Glucose 108 mg/dL (75-110) 03/07/19 07:40 Hemoglobin A1c 6.2 % (4.2-6.5) 03/06/19 08:21 Calcium 9.6 mg/dl (8.6-10.4) 03/07/19 07:40 Phosphorus 3.0 mg/dL (2.5-4.5) 03/06/19 08:21 Magnesium 1.9 mg/dL (1.6-2.3) 03/06/19 08:21 Total Bilirubin 0.3 mg/dL (0.2-1.3) 03/07/19 07:40 AST 19 U/L (17-59) 03/07/19 07:40 ALT 19 U/L (21-72) L 03/07/19 07:40 Alkaline Phosphatase 60 U/L (38-126) 03/07/19 07:40 Total Creatine Kinase 77 U/L (55-170) 03/06/19 08:21 Total Protein 6.9 g/dL (6.3-8.3) 03/07/19 07:40 Albumin 3.7 g/dL (3.5-5.0) 03/07/19 07:40 Globulin 3.3 gm/dL (2.2-3.9) 03/07/19 07:40 Albumin/Globulin Ratio 1.1 (1.0-2.1) 03/07/19 07:40 Triglycerides 114 mg/dL (0-149) 03/06/19 08:21 Cholesterol 183 mg/dL (0-199) 03/06/19 08:21 LDL Cholesterol Direct 103 mg/dL (0-129) 03/06/19 08:21 HDL Cholesterol 45 mg/dL (30-70) 03/06/19 08:21 Urine Color Yellow (YELLOW) 03/05/19 23:41 Urine Clarity Clear (Clear) 03/05/19 23:41 Urine pH 6.0 (5.0-8.0) 03/05/19 23:41 Ur Specific [place] 1.024 (1.003-1.030) 03/05/19 23:41 Urine Protein Negative mg/dL (NEGATIVE) 03/05/19 23:41 Urine Glucose (UA) Normal mg/dL (Normal) 03/05/19 23:41 Urine Ketones Negative mg/dL (NEGATIVE) 03/05/19 23:41 Urine Blood 1+ (NEGATIVE) H 03/05/19 23:41 Urine Nitrate Negative (NEGATIVE) 03/05/19 23:41 Urine Bilirubin Negative (NEGATIVE) 03/05/19 23:41 Urine Urobilinogen 2.0 mg/dL (0.2-1.0) 03/05/19 23:41 Ur Leukocyte Esterase Neg Nelson/uL (Negative) 03/05/19 23:41 Urine WBC (Auto) 1 /hpf (0-5) 03/05/19 23:41 Urine RBC (Auto) 5 /hpf (0-3) H 03/05/19 23:41 Ur Squamous Epith Cells < 1 /hpf (0-5) 03/05/19 23:41 Urine Opiates Screen Negative (NEGATIVE) 03/05/19 22:01 Urine Methadone Screen Negative (NEGATIVE) 03/05/19 22:01 Ur Barbiturates Screen Negative (NEGATIVE) 03/05/19 22:01 Ur Phencyclidine Scrn Negative (NEGATIVE) 03/05/19 22:01 Ur Amphetamines Screen Negative (NEGATIVE) 03/05/19 22:01 U Benzodiazepines Scrn Negative (NEGATIVE) 03/05/19 22:01 U Oth Cocaine Metabols Negative (NEGATIVE) 03/05/19 22:01 U Cannabinoids Screen Negative (NEGATIVE) 03/05/19 22:01 HIV 1&2 Antibody Screen Negative (NEGATIVE) 03/06/19 08:21 - Hospital Course Hospital Course: HPI at time of admission: "38 year old male with a past medical history of cellulitis presents to the emergency department with left hand swelling for the past day. Patient states it started to swell slightly three days ago, however yesterday he tried to pop what he thought was a pimple. Patient states when he woke up this morning the hand had grew even larger and began to hurt. Patient describes the pain as throbbing in nature. He denies any recent accidents or trauma to the area. 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 He denies taking anything for the pain. Of note, he had two episodes of cellulits in the past. Approximately five years ago he had a similar infection on his anterior chest wall and right leg. He also reports his brother and father have had similar skin infections." Hospital Course: Pertinent imaging: Right hand xray: Negative for acute fracture or dislocation. Negative for osteomyelitis. Pt was admitted for treatment of R hand cellulitis. Was given Vanco/Rocephin. Pt demonstrated leukocytosis on admission, which trended down on day of discharge. Blood cultures demonstrated no growth. Dr. Espinoza (Hand Surgery) was consulted, who recommended antibiotic therapy and no acute surgical management at this time. Pt also demonstrated elevated blood pressure on admission likely 2/2 to pain, which normalized prior to d/c. Pt requested to go home today. Was discharged on 03/07/19 with Clindamycin 300 mg PO tid x 1 week and Probiotic x 1 week. Was instructed to establish care at [facility], and also for f/u to make sure cellulitis is decreasing in size and improving. This is a summary of the hospital course. For further details, please refer to the hospital EMR. Discharge Exam - Head Exam Head Exam: ATRAUMATIC, NORMAL INSPECTION - Eye Exam Eye Exam: EOMI, Normal appearance, PERRL Pupil Exam: NORMAL ACCOMODATION - ENT Exam ENT Exam: Mucous Membranes Moist - Neck Exam Neck exam: Full Rom, Normal Inspection - Respiratory Exam Respiratory Exam: Clear to PA & Lateral, NORMAL BREATHING PATTERN, UNREMARKABLE - Cardiovascular Exam Cardiovascular Exam: REGULAR RHYTHM, +S1, +S2. absent: Gallop, Rubs, Systolic Murmur - GI/Abdominal Exam GI & Abdominal Exam: Normal Bowel Sounds, Soft. absent: Distended, Tenderness, Unremarkable - Extremities Exam Additional comments: L hand swelling and erythema stable in size - Back Exam Back exam: FULL ROM, NORMAL INSPECTION. absent: paraspinal tenderness - Neurological Exam Neurological exam: Alert, CN II-XII Intact, Normal Gait, Oriented x3, Reflexes Normal - Psychiatric Exam Psychiatric exam: Normal Affect, Normal Mood - Skin Skin Exam: Dry, Intact, Warm Discharge Plan - Discharge Medications Prescriptions: Clindamycin [Cleocin] 300 mg PO Q8H #21 cap Lactobacillus Acidophilus [Probiotic Acidophilus] 1 each PO DAILY #7 tablet - Follow Up Plan Condition: STABLE Disposition: HOME/ ROUTINE Instructions: Clindamycin (Systemic), Cellulitis (DC) Additional Instructions: Por favor, llama a la clinica de "[facility]" en [place] [facility] para la negrita despues de salir al hospital. El hoda de telefono es . Zeynep medicina de antibiotico de "Clindamycin" tress veces a ana lilia for siete corbett para la infeccion de la mano. Zeynep medicina de "Probiotic" para la himanshu de [place]. Tiene symptomas mas mal, llama la doctor primaria or va al departamento de emergencia de cerca. Referrals: Suzette Landa MD [Staff Provider] -
== END 2019-03-07 17:26 | disposition home or self-care (01) ==
LOC: C.ER 13:13 → C.9E 14:05 → C.3T 15:24
PROVIDERS: ADMIT Internal Medicine; ATTEND Internal Medicine
DX: L03.113 Cellulitis of right upper limb (principal); R03.0 Elevated blood-pressure reading, without diagnosis of hypertension
CPT/HCPCS: 36415; 73130; 80048; 80053; 80061; 81001; 82550; 83036; 83735; 84100; 85025; 86703; 87040; 96365; 96366; 96367; 96372; 96375; 99281; G0378; G0480; J0690; J0696; J1644; J1885; J3370; J7050; J7120